=== PATIENT | male | born 1995 | race Caucasian/White ===

== ENCOUNTER 2022-04-16 16:08 | Inpatient (IN) | payer OTHER ==
[~2022-04-16] VITALS: Ht 172.7 cm; Wt 65.3 kg
[2022-04-16 20:45] VITALS: BP 136/65
[2022-04-16] MEDS: DOCUSATE SODIUM 100 MG CAPSULE PO SCH (21:45)
[2022-04-16] MEDS: SENNA 187 MG TABLET PO SCH (21:45)
[2022-04-16] MEDS ORDERED: ONDANSETRON HCL 4 MG TABLET PO PRN (22:00)
[2022-04-16] MEDS ORDERED: OxyCODONE HCL 5 MG IR TABLET PO PRN (22:00)
[2022-04-16] MEDS: ACETAMINOPHEN 325 MG TABLET PO SCH (22:51)
[2022-04-16] MEDS: AMITRIPTYLINE HCL 25 MG TABLET PO SCH (22:52)
[2022-04-16] MEDS: MELATONIN 5 MG TABLET PO SCH (22:52)
[2022-04-16] MEDS: TiZANidine HCL 4 MG TABLET PO SCH (22:52)
[2022-04-16] MEDS: GABAPENTIN 300 MG CAPSULE PO SCH (22:52)
[2022-04-16] MEDS: ETHYL ALCOHOL 62% ANTISEPTIC NASAL SANITIZER 0.6 ML AMPUL NASAL SCH (22:53)
[2022-04-17 07:49] LABS: EOSINOPHILS % (AUTO) 0.7 % (1.0-6.0); HEMATOCRIT 30.5 % (41-53); HEMOGLOBIN 10.5 g/dL (13.5-17.5); MEAN CORPUSCULAR HEMOGLOBIN 30.9 pg (26.0-34.0); MEAN CORPUSCULAR HGB CONC 34.3 G/dL (31.0-37.0); MEAN CORPUSCULAR VOLUME 90 fL (80-100); MONOCYTES # (AUTO) 0.8 K/uL (0.1-1.0); MONOCYTES % (AUTO) 9.5 % (2.0-9.0); NEUTROPHILS # (AUTO) 6.5 K/uL (1.8-7.7); NEUTROPHILS % (AUTO) 76.8 % (40.0-70.0); PLATELET COUNT (AUTO) 715 K/uL (150-450); RED BLOOD CELL COUNT(AUTO) 3.39 MIL/uL (4.50-5.90); RED CELL DISTRIBUTION WIDTH 14.6 % (11.5-14.5)
[2022-04-17] MEDS: CHOLECALCIFEROL (VIT D3) 1,000 UNITS [25 MCG] TABLET PO SCH (08:11)
[2022-04-17] MEDS: TiZANidine HCL 4 MG TABLET PO SCH ×4 (08:11→23:06)
[2022-04-17] MEDS: DOCUSATE SODIUM 100 MG CAPSULE PO SCH ×2 (08:11→20:23)
[2022-04-17] MEDS: ETHYL ALCOHOL 62% ANTISEPTIC NASAL SANITIZER 0.6 ML AMPUL NASAL SCH ×2 (08:12→20:23)
[2022-04-17] MEDS: ENOXAPARIN SODIUM 40 MG/0.4 ML PF SYRINGE SQ SCH (08:12)
[2022-04-17] MEDS: ACETAMINOPHEN 325 MG TABLET PO SCH ×4 (08:13→23:06)
[2022-04-17] MEDS: GABAPENTIN 300 MG CAPSULE PO SCH ×4 (08:13→23:06)
[2022-04-17 08:19] LABS: ALANINE AMINOTRANSFERASE 172 U/L (12-78); ALBUMIN 3.1 g/dL (3.4-5.0); ALKALINE PHOSPHATASE 361 U/L (46-116); ANION GAP 10 mmol/L (8-16); ASPARTATE AMINOTRANSFERASE 69 U/L (15-37); BILIRUBIN,TOTAL 0.4 mg/dL (0.1-1.0); CARBON DIOXIDE 26 mmol/L (22-29); CHLORIDE 99 mmol/L (98-107); CREATININE 0.63 mg/dL (0.60-1.30); GLUCOSE,RANDOM 153 mg/dL (70-110); POTASSIUM 3.6 mmol/L (3.5-5.1); SODIUM SERUM 135 mmol/L (136-145); TOTAL PROTEIN, SERUM 7.7 g/dL (6.4-8.2); UREA NITROGEN, BLOOD 10 mg/dL (7-18)
[2022-04-17 08:20] LABS: GLOMERULAR FILTR. RATE CALC > 60 mL/min (>60)
[2022-04-17 09:13] VITALS: BP 138/65
[2022-04-17] MEDS: MELATONIN 5 MG TABLET PO SCH (20:22)
[2022-04-17] MEDS: AMITRIPTYLINE HCL 25 MG TABLET PO SCH (20:22)
[2022-04-17] MEDS: SENNA 187 MG TABLET PO SCH (20:23)
[2022-04-17 20:45] VITALS: BP 141/65
[2022-04-18 08:15] VITALS: BP 113/78
[2022-04-18] MEDS: DOCUSATE SODIUM 100 MG CAPSULE PO SCH ×2 (09:00→21:00)
[2022-04-18] MEDS: GABAPENTIN 300 MG CAPSULE PO SCH ×3 (09:03→23:29)
[2022-04-18] MEDS: TiZANidine HCL 4 MG TABLET PO SCH ×3 (09:03→23:29)
[2022-04-18] MEDS: ETHYL ALCOHOL 62% ANTISEPTIC NASAL SANITIZER 0.6 ML AMPUL NASAL SCH ×2 (09:03→21:33)
[2022-04-18] MEDS: ACETAMINOPHEN 325 MG TABLET PO SCH ×3 (09:03→23:29)
[2022-04-18] MEDS: ENOXAPARIN SODIUM 40 MG/0.4 ML PF SYRINGE SQ SCH (09:03)
[2022-04-18] MEDS: CHOLECALCIFEROL (VIT D3) 1,000 UNITS [25 MCG] TABLET PO SCH (09:03)
[2022-04-18 20:00] VITALS: BP 138/72
[2022-04-18] MEDS: SENNA 187 MG TABLET PO SCH (21:00)
[2022-04-18] MEDS: MUPIROCIN CALCIUM 2% 22 GM OINTMENT NASAL SCH (21:33)
[2022-04-18] MEDS: MELATONIN 5 MG TABLET PO SCH (21:34)
[2022-04-18] MEDS: AMITRIPTYLINE HCL 25 MG TABLET PO SCH (21:34)
[2022-04-19] MEDS: GABAPENTIN 300 MG CAPSULE PO SCH ×3 (08:02→22:33)
[2022-04-19] MEDS: CHOLECALCIFEROL (VIT D3) 1,000 UNITS [25 MCG] TABLET PO SCH (08:02)
[2022-04-19] MEDS: ENOXAPARIN SODIUM 40 MG/0.4 ML PF SYRINGE SQ SCH (08:02)
[2022-04-19] MEDS: ACETAMINOPHEN 325 MG TABLET PO SCH ×3 (08:02→22:31)
[2022-04-19] MEDS: DOCUSATE SODIUM 100 MG CAPSULE PO SCH ×2 (08:03→21:00)
[2022-04-19] MEDS: MUPIROCIN CALCIUM 2% 22 GM OINTMENT NASAL SCH ×2 (08:03→21:11)
[2022-04-19] MEDS: TiZANidine HCL 4 MG TABLET PO SCH ×3 (08:03→22:29)
[2022-04-19] MEDS: ETHYL ALCOHOL 62% ANTISEPTIC NASAL SANITIZER 0.6 ML AMPUL NASAL SCH ×2 (08:03→21:10)
[2022-04-19 08:10] VITALS: BP 150/61
[2022-04-19] MEDS: SENNA 187 MG TABLET PO SCH (21:00)
[2022-04-19] MEDS: AMITRIPTYLINE HCL 25 MG TABLET PO SCH (21:11)
[2022-04-19 21:28] VITALS: BP 149/79
[2022-04-19] MEDS: MELATONIN 5 MG TABLET PO SCH (22:29)
[2022-04-20 08:10] VITALS: BP 126/62
[2022-04-20] MEDS: ETHYL ALCOHOL 62% ANTISEPTIC NASAL SANITIZER 0.6 ML AMPUL NASAL SCH ×2 (08:51→20:39)
[2022-04-20] MEDS: CHOLECALCIFEROL (VIT D3) 1,000 UNITS [25 MCG] TABLET PO SCH (08:52)
[2022-04-20] MEDS: GABAPENTIN 300 MG CAPSULE PO SCH ×3 (08:52→23:35)
[2022-04-20] MEDS: ACETAMINOPHEN 325 MG TABLET PO SCH ×3 (08:52→23:35)
[2022-04-20] MEDS: TiZANidine HCL 4 MG TABLET PO SCH ×3 (08:52→23:35)
[2022-04-20] MEDS: DOCUSATE SODIUM 100 MG CAPSULE PO SCH ×3 (08:52→20:44)
[2022-04-20] MEDS: ENOXAPARIN SODIUM 40 MG/0.4 ML PF SYRINGE SQ SCH (08:55)
[2022-04-20] MEDS: MUPIROCIN CALCIUM 2% 22 GM OINTMENT NASAL SCH ×2 (09:00→20:38)
[2022-04-20 10:23] LABS: BASOPHILS % (AUTO) 0.6 % (0.0-2.0); EOSINOPHILS % (AUTO) 0.8 % (1.0-6.0); HEMATOCRIT 30.9 % (41-53); HEMOGLOBIN 10.5 g/dL (13.5-17.5); LYMPHOCYTES # (AUTO) 1.2 K/uL (1.0-4.8); LYMPHOCYTES % (AUTO) 14.3 % (22.0-44.0); MEAN CORPUSCULAR HEMOGLOBIN 29.9 pg (26.0-34.0); MEAN CORPUSCULAR HGB CONC 33.9 G/dL (31.0-37.0); MEAN CORPUSCULAR VOLUME 88 fL (80-100); MONOCYTES # (AUTO) 0.7 K/uL (0.1-1.0); MONOCYTES % (AUTO) 8.2 % (2.0-9.0); NEUTROPHILS # (AUTO) 6.3 K/uL (1.8-7.7); NEUTROPHILS % (AUTO) 76.1 % (40.0-70.0); PLATELET COUNT (AUTO) 629 K/uL (150-450); RED BLOOD CELL COUNT(AUTO) 3.51 MIL/uL (4.50-5.90)
[2022-04-20 11:49] LABS: ERYTHROCYTE SEDIMENTATION RATE 85 MM/HR (0-15)
[2022-04-20 20:20] VITALS: BP 118/64
[2022-04-20] MEDS: AMITRIPTYLINE HCL 25 MG TABLET PO SCH (20:38)
[2022-04-20] MEDS: MELATONIN 5 MG TABLET PO SCH (20:39)
[2022-04-20] MEDS: SENNA 187 MG TABLET PO SCH (20:44)
[2022-04-21] MEDS: DOCUSATE SODIUM 100 MG CAPSULE PO SCH ×2 (08:19→21:00)
[2022-04-21] MEDS: ETHYL ALCOHOL 62% ANTISEPTIC NASAL SANITIZER 0.6 ML AMPUL NASAL SCH ×2 (08:19→21:55)
[2022-04-21] MEDS: CHOLECALCIFEROL (VIT D3) 1,000 UNITS [25 MCG] TABLET PO SCH (08:19)
[2022-04-21] MEDS: ACETAMINOPHEN 325 MG TABLET PO SCH ×3 (08:19→23:11)
[2022-04-21] MEDS: TiZANidine HCL 4 MG TABLET PO SCH ×3 (08:19→23:11)
[2022-04-21] MEDS: GABAPENTIN 300 MG CAPSULE PO SCH ×3 (08:19→23:11)
[2022-04-21] MEDS: ENOXAPARIN SODIUM 40 MG/0.4 ML PF SYRINGE SQ SCH (08:20)
[2022-04-21] MEDS: MUPIROCIN CALCIUM 2% 22 GM OINTMENT NASAL SCH ×2 (08:21→21:56)
[2022-04-21 09:05] VITALS: BP 119/71
[2022-04-21 20:10] VITALS: BP 125/67
[2022-04-21] MEDS: SENNA 187 MG TABLET PO SCH (21:00)
[2022-04-21] MEDS: AMITRIPTYLINE HCL 25 MG TABLET PO SCH (21:56)
[2022-04-21] MEDS: MELATONIN 5 MG TABLET PO SCH (21:56)
[2022-04-22 08:05] VITALS: BP 132/59
[2022-04-22] MEDS: ENOXAPARIN SODIUM 40 MG/0.4 ML PF SYRINGE SQ SCH (08:16)
[2022-04-22] MEDS: TiZANidine HCL 4 MG TABLET PO SCH ×2 (08:16→21:12)
[2022-04-22] MEDS: GABAPENTIN 300 MG CAPSULE PO SCH ×3 (08:16→23:02)
[2022-04-22] MEDS: ACETAMINOPHEN 325 MG TABLET PO SCH ×3 (08:16→23:02)
[2022-04-22] MEDS: DOCUSATE SODIUM 100 MG CAPSULE PO SCH ×2 (08:17→21:00)
[2022-04-22] MEDS: CHOLECALCIFEROL (VIT D3) 1,000 UNITS [25 MCG] TABLET PO SCH (08:17)
[2022-04-22] MEDS: ETHYL ALCOHOL 62% ANTISEPTIC NASAL SANITIZER 0.6 ML AMPUL NASAL SCH ×2 (08:18→21:10)
[2022-04-22] MEDS: MUPIROCIN CALCIUM 2% 22 GM OINTMENT NASAL SCH ×2 (08:18→21:10)
[2022-04-22 15:16] LABS: COVID AG,FIA SOURCE NASAL SWAB
[2022-04-22] MEDS: SENNA 187 MG TABLET PO SCH (21:00)
[2022-04-22] MEDS: MELATONIN 5 MG TABLET PO SCH (21:11)
[2022-04-22] MEDS: AMITRIPTYLINE HCL 25 MG TABLET PO SCH (21:11)
[2022-04-22 22:11] VITALS: BP 126/76
[2022-04-23] MEDS ORDERED: CHOL400T56 PO (00:44)
[2022-04-23] MEDS ORDERED: GABA-1181 PO (00:44)
[2022-04-23] MEDS ORDERED: AMIT25TA10 PO (00:53)
[2022-04-23 07:31] LABS: BASOPHILS % (AUTO) 0.8 % (0.0-2.0); EOSINOPHILS % (AUTO) 1.7 % (1.0-6.0); HEMATOCRIT 33.6 % (41-53); HEMOGLOBIN 11.3 g/dL (13.5-17.5); LYMPHOCYTES # (AUTO) 1.3 K/uL (1.0-4.8); LYMPHOCYTES % (AUTO) 19.3 % (22.0-44.0); MEAN CORPUSCULAR HEMOGLOBIN 29.8 pg (26.0-34.0); MEAN CORPUSCULAR HGB CONC 33.7 G/dL (31.0-37.0); MEAN CORPUSCULAR VOLUME 88 fL (80-100); MONOCYTES # (AUTO) 0.6 K/uL (0.1-1.0); MONOCYTES % (AUTO) 9.5 % (2.0-9.0); NEUTROPHILS # (AUTO) 4.6 K/uL (1.8-7.7); NEUTROPHILS % (AUTO) 68.7 % (40.0-70.0); PLATELET COUNT (AUTO) 492 K/uL (150-450); RED CELL DISTRIBUTION WIDTH 14.2 % (11.5-14.5)
[2022-04-23 08:01] LABS: ALANINE AMINOTRANSFERASE 62 U/L (12-78); ALBUMIN 3.4 g/dL (3.4-5.0); ALKALINE PHOSPHATASE 429 U/L (46-116); ANION GAP 11 mmol/L (8-16); ASPARTATE AMINOTRANSFERASE 23 U/L (15-37); BILIRUBIN,TOTAL 0.3 mg/dL (0.1-1.0); C-REACTIVE PROTEIN QUANT 2.36 mg/dL (0.00-0.30); CALCIUM, TOTAL 9.1 mg/dL (8.8-10.5); CARBON DIOXIDE 27 mmol/L (22-29); CHLORIDE 100 mmol/L (98-107); CREATININE 0.51 mg/dL (0.60-1.30); GLUCOSE,RANDOM 103 mg/dL (70-110); POTASSIUM 3.9 mmol/L (3.5-5.1); SODIUM SERUM 138 mmol/L (136-145); UREA NITROGEN, BLOOD 8 mg/dL (7-18)
[2022-04-23 08:02] LABS: GLOMERULAR FILTR. RATE CALC > 60 mL/min (>60)
[2022-04-23 08:10] VITALS: BP 126/58
[2022-04-23] MEDS: GABAPENTIN 300 MG CAPSULE PO SCH ×3 (08:15→23:44)
[2022-04-23] MEDS: MUPIROCIN CALCIUM 2% 22 GM OINTMENT NASAL SCH (08:16)
[2022-04-23] MEDS: ACETAMINOPHEN 325 MG TABLET PO SCH ×3 (08:16→23:44)
[2022-04-23] MEDS: DOCUSATE SODIUM 100 MG CAPSULE PO SCH ×2 (08:17→20:46)
[2022-04-23] MEDS: ETHYL ALCOHOL 62% ANTISEPTIC NASAL SANITIZER 0.6 ML AMPUL NASAL SCH ×2 (08:17→20:50)
[2022-04-23] MEDS: CHOLECALCIFEROL (VIT D3) 1,000 UNITS [25 MCG] TABLET PO SCH (08:17)
[2022-04-23] MEDS: ENOXAPARIN SODIUM 40 MG/0.4 ML PF SYRINGE SQ SCH (08:18)
[2022-04-23] MEDS: TiZANidine HCL 4 MG TABLET PO SCH (08:18)
[2022-04-23] MEDS ORDERED: CHOL25TA4 PO (12:30)
[2022-04-23 20:00] VITALS: BP 123/62
[2022-04-23] MEDS: AMITRIPTYLINE HCL 25 MG TABLET PO SCH (20:50)
[2022-04-23] MEDS: MELATONIN 5 MG TABLET PO SCH (23:43)
[2022-04-24] MEDS: GABAPENTIN 300 MG CAPSULE PO SCH ×3 (07:26→23:10)
[2022-04-24] MEDS: ACETAMINOPHEN 325 MG TABLET PO SCH ×3 (07:26→23:10)
[2022-04-24] MEDS: DOCUSATE SODIUM 100 MG CAPSULE PO SCH ×2 (07:27→21:00)
[2022-04-24] MEDS: ETHYL ALCOHOL 62% ANTISEPTIC NASAL SANITIZER 0.6 ML AMPUL NASAL SCH ×2 (07:27→20:26)
[2022-04-24] MEDS: ENOXAPARIN SODIUM 40 MG/0.4 ML PF SYRINGE SQ SCH (07:27)
[2022-04-24] MEDS: CHOLECALCIFEROL (VIT D3) 1,000 UNITS [25 MCG] TABLET PO SCH (07:27)
[2022-04-24 09:37] VITALS: BP 127/76
[2022-04-24 20:21] VITALS: BP 145/77
[2022-04-24] MEDS: AMITRIPTYLINE HCL 25 MG TABLET PO SCH (20:26)
[2022-04-24] MEDS: MELATONIN 5 MG TABLET PO SCH (20:26)
[2022-04-25 07:32] VITALS: BP 141/65
[2022-04-25] MEDS: DOCUSATE SODIUM 100 MG CAPSULE PO SCH (09:00)
[2022-04-25] MEDS ORDERED: AMIT25TA9 PO (09:41)
[2022-04-25] MEDS ORDERED: CHOL25TA4 PO (09:41)
[2022-04-25] MEDS ORDERED: GABA-1181 PO (09:41)
[2022-04-25] MEDS ORDERED: ACET325T51 PO (09:41)
[2022-04-25] MEDS ORDERED: ASPI-1026 PO (09:41)
[2022-04-25] MEDS: ACETAMINOPHEN 325 MG TABLET PO SCH (09:48)
[2022-04-25] MEDS: CHOLECALCIFEROL (VIT D3) 1,000 UNITS [25 MCG] TABLET PO SCH (09:48)
[2022-04-25] MEDS: ETHYL ALCOHOL 62% ANTISEPTIC NASAL SANITIZER 0.6 ML AMPUL NASAL SCH (09:48)
[2022-04-25] MEDS: GABAPENTIN 300 MG CAPSULE PO SCH (09:48)
[2022-04-26] MEDS ORDERED: ASPIRIN 325 MG TABLET PO SCH (07:30)
== END 2022-04-25 12:00 | disposition home or self-care (01) | DRG 340 ==
LOC: 2WR 20:27
PROVIDERS: ADMIT Physical Medicine & Rehabilitation; ATTEND Physical Medicine & Rehabilitation
DX: S72.8X1A Other fracture of right femur, initial encounter for closed fracture (principal); E46 Unspecified protein-calorie malnutrition; Z89.611 Acquired absence of right leg above knee; S42.002A Fracture of unspecified part of left clavicle, initial encounter for closed fracture; D64.9 Anemia, unspecified; R74.01 Elevation of levels of liver transaminase levels; S42.292A Other displaced fracture of upper end of left humerus, initial encounter for closed fracture; S42.402A Unspecified fracture of lower end of left humerus, initial encounter for closed fracture; V89.2XXA Person injured in unspecified motor-vehicle accident, traffic, initial encounter; Y93.89 Activity, other specified; Y92.89 Other specified places as the place of occurrence of the external cause; Y99.8 Other external cause status; Z20.822 Contact with and (suspected) exposure to COVID-19
CPT/HCPCS: 80053; 85025; 85651; 86140; 87081; 97110; 97150; 97163; 97167; 97530; 97535; 99366; J1650; Q9967